=== PATIENT | male | born 1975 | race Hispanic/Latino ===

== ENCOUNTER 2018-11-25 10:15 | Outpatient (CLI) | payer OTHER ==
--- NOTE | 2018-11-25 12:05 | ULT ---
SCROTAL ULTRASOUND INCLUDING COLOR AND SPECTRAL DOPPLER IMAGING: HISTORY: Left testicular pain. FINDINGS: Right testis measures 4.5 x 2.0 x 2.8 cm. The left testis measures 3.2 x 2.2 x 3.1 cm. Small left-s ided hydrocele. Several bilateral intratesticular microlithiasis. Incidental left testicular append age. Vascular duplex including color and spectral Doppler imaging demonstrates arterial inflow and venous outflow bilaterally. No intratesticular mass. IMPRESSION: 1. No evidence for testicular mass. 2. No evidence for testicular torsion or intratesticular mass. Small left-sided hydrocele. Left-si ded testicular appendage. Bilateral intratesticular microlithiasis. POS: [facility]
== END 2018-11-25 10:16 | disposition home or self-care (01) ==
LOC: BICULT 10:15
PROVIDERS: ATTEND Nurse Practitioner Family
DX: N50.812 Left testicular pain (principal); N43.3 Hydrocele, unspecified; N50.89 Other specified disorders of the male genital organs; Q55.29 Other congenital malformations of testis and scrotum
CPT/HCPCS: 76870; 93976

== ENCOUNTER 2019-05-20 05:55 | Emergency (ER) | payer OTHER ==
[2019-05-20] MEDS ORDERED: CALCIUM GLUCONATE 25 GM TUBE ONE ×3 (06:03→06:15)
[2019-05-20] MEDS ORDERED: Ondansetron PF 4 MG/2 ML Vial ONE (06:19)
[2019-05-20] MEDS ORDERED: Morphine 4 MG/ML VIAL ONE (06:19)
[2019-05-20 06:22] LABS: #Basophils 0.1 thou/uL (0.0-0.2); #Eosinphils 0.3 thou/uL (0.0-0.7); #Lymphocytes 3.4 thou/uL (1.20-3.40); #Monocytes 0.6 thou/uL (0.11-0.59); #Neutrophils 3.6 thou/uL (1.40-6.50); %Basophils 0.8 % (0.0-1.0); %Eosinophils 4.1 % (0.0-10.0); %Lymphocytes 42.7 % (21.0-51.0); %Monocytes 7.6 % (0.0-10.0); %Neutrophils 44.7 % (42.0-75.0); Hemoglobin 17.5 g/dL (14.0-18.0); Mean Corpuscular HGB CONC 33.8 g/dL (32.0-36.0); Mean Corpuscular Hemoglobin 29.4 pg (27.0-31.0); Mean Corpuscular Volume 86.9 fL (78.0-98.0); Mean Platelet Volume 7.3 fL (7.4-10.4); Platelet Count 265 thou/uL (130-400); RBC Distribution Width 12.8 % (11.5-14.5); Red Blood Cell (RBC) Count 5.94 mill/uL (4.70-6.10)
[2019-05-20 06:42] LABS: ALT (SGPT) 19 U/L (8-55); AST (SGOT) 23 U/L (5-34); Albumin 4.2 g/dL (3.5-5.0); Alkaline Phosphatase 104 U/L (40-110); Anion Gap 15 mmol/L (10-20); BUN (Urea Nitrogen) 13 mg/dL (8.9-20.6); Bilirubin, Total 0.7 mg/dL (0.2-1.2); Calc. Creatinine Clearance 0 mL/min (70-130); Calcium 9.1 mg/dL (7.8-10.44); Carbon Dioxide 22 mmol/L (22-29); Chloride 107 mmol/L (98-107); Estimated GFR-MDRD 82; Globulin 3.5 g/dL (2.4-3.5); Glucose 128 mg/dL (70-105); Potassium 3.3 mmol/L (3.5-5.1); Protein, Total 7.7 g/dL (6.0-8.3); Sodium 141 mmol/L (136-145)
--- NOTE | 2019-05-20 07:41 | RAD ---
XR Chest 1 View Portable HISTORY: Acid moran to chest and face COMPARISON: None FINDINGS: The heart size is normal. The lungs are well expanded without focal areas of consolidation, pneumothorax or pleural effusions. There is a small calcified granuloma in the left lower lung. IMPRESSION: No radiographic evidence of acute cardiopulmonary process.
== END 2019-05-20 07:19 | disposition short-term general hospital (02) ==
LOC: ERS 05:55
DX: T21.31XA Burn of third degree of chest wall, initial encounter (principal); T21.12XA Burn of first degree of abdominal wall, initial encounter; T24.112A Burn of first degree of left thigh, initial encounter; T24.111A Burn of first degree of right thigh, initial encounter; T22.112A Burn of first degree of left forearm, initial encounter; T22.111A Burn of first degree of right forearm, initial encounter; T22.10XA Burn of first degree of shoulder and upper limb, except wrist and hand, unspecified site, initial encounter; T31.55 Burns involving 50-59% of body surface with 50-59% third degree burns; X19.XXXA Contact with other heat and hot substances, initial encounter
CPT/HCPCS: 71045; 80053; 85025; 93005; 96361; 96374; 96375; 99292; J2270; J2405